=== PATIENT | male | born 1980 | race Caucasian/White ===

== ENCOUNTER 2019-08-19 20:09 | Observation (INO) ==
[2019-08-19 20:44] LABS: BE 2.4 mmoll (-3.0-3.0); BLOOD TYPE ARTERIAL; HCO3-(ACT) 26.7 mmoll (20.0-26.0); METHB 1.3 % (0.0-1.5); O2(CT) 20.8 mL/dL (15.0-23.0); O2HB 94.8 % (95.0-99.0); PCO2(98.6) 45 mmHg (35-45); PO2(98.6) 84 mmHg (60-100); SAMPLE BLOOD; SAO2 98.3 % (95.0-100.0); THB 15.6 g/dL (11.5-17.4)
[2019-08-19 20:46] LABS: ALLEN TEST YES; MODALITY ROOM AIR
[2019-08-19 20:46] LABS: BASO# 0.03 X1000 (0.0-0.2); BASO% 0.4 % (0.0-0.8); EOS# 0.12 X1000 (0.0-0.7); EOS% 1.6 % (0.0-10.0); HEMATOCRIT 46.4 % (42.0-52.0); HEMOGLOBIN 14.8 g/dL (14.0-18.0); IMM GRAN# 0.02 X1000 (0.0-0.04); IMM GRAN% 0.3 % (0.0-0.5); LYMPH# 2.34 X1000 (1.2-3.4); LYMPH% 32.1 % (20.5-51.1); MCH 28.6 PG (27-31); MCHC 31.9 g/dL (33-37); MCV 89.7 FL (81-99); MONO# 0.56 X1000 (0.11-0.59); MONO% 7.7 % (1.7-9.3); MPV 11.1 FL (7.4-10.4); NEUT# 4.23 X1000 (1.4-6.5); NEUT% 57.9 % (42.2-75.2); PLT 198 X1000 (130-400); RBC 5.17 XMIL (4.7-6.1); RDW 13.7 % (11.5-14.5)
[2019-08-19 20:51] LABS: INR 0.92; PROTIME 12.8 Seconds (11.0-16.0)
[2019-08-19 21:02] LABS: AGAP 14; BUN 10 mg/dL (8-22); CALCIUM 9.6 mg/dL (8.8-10.2); CHLORIDE 99 mmol/L (98-107); COSMO 283; ESTIMATED GFR > 60; GLUCOSE 105 mg/dL (70-104); POTASSIUM 4.3 mmol/L (3.5-5.1); SODIUM 142 mmol/L (136-145); TCO2 30 mmol/L (25-35)
--- NOTE | 2019-08-19 21:05 | Diag Imaging Result Doc PS360 ---
EXAM: CHEST-2 VIEWS INDICATION: short of breath TECHNIQUE: 2 views COMPARISON: None. FINDINGS: The lungs are grossly clear. There is no discrete pleural fluid collection or pneumothorax. The cardiomediastinal silhouette and central vasculature are grossly unremarkable. IMPRESSION: No evidence of acute pathology by plain radiograph. Electronically signed by Jesús Larry 08/19/2019 9:03 PM
[2019-08-19 21:13] LABS: UR AMPHETAMINES QUAL NONE DETECTED (NONE DETECT); UR BARBITUATES QUAL NONE DETECTED (NONE DETECT); UR BENZODIAZEPIN QUAL NONE DETECTED (NONE DETECT); UR CANNABINOIDS QUAL NONE DETECTED (NONE DETECT); UR COCAINE QUAL NONE DETECTED (NONE DETECT); UR METHADONE QUAL NONE DETECTED (NONE DETECT); UR METHAMPHETAMINE QUAL NONE DETECTED (NONE DETECT); UR OPIATES QUAL NONE DETECTED (NONE DETECT); UR OXYCODONE QUAL NONE DETECTED (NONE DETECT); UR PCP QUAL NONE DETECTED (NONE DETECT); UR PROPOXYPHENE QUAL NONE DETECTED (NONE DETECT); UR TCA QUAL NONE DETECTED (NONE DETECT)
[2019-08-19] MEDS ORDERED: NITROGLYCERIN SL ONE (22:24)
[2019-08-19] MEDS ORDERED: ASPIRIN PO ONE (22:24)
--- NOTE | 2019-08-19 22:25 | EKG Report ---
Test Performed on : 08/19/2019 8:16:27 PM Test Reason : SOB Blood Pressure : / mmHG Vent. Rate : 089 BPM Atrial Rate : 089 BPM P-R Int : 156 ms QRS Dur : 094 ms QT Int : 358 ms P-R-T Axes : 043 078 033 degrees QTc Int : 435 ms Normal sinus rhythm. Normal ECG No previous ECGs available Unconfirmed Result
--- NOTE | 2019-08-19 23:06 | PROVIDER DOCUMENTATION ---
This chart was entered by Tiarra Morrissey Scribe, acting as scribe for Martinez Zhu MD. HPI-Chest Pain - General Chief Complaint: Chest Pain Stated Complaint: SOB Time Seen by Provider: 08/19/19 20:17 Source: patient Allergies/Adverse Reactions: Patient Allergies Allergy/AdvReac Type Severity Reaction Status Date / Time amoxicillin [From Augmentin] AdvReac ANAPHYLAXIS Verified 08/19/19 20:24 clavulanic acid AdvReac ANAPHYLAXIS Verified 08/19/19 20:24 [From Augmentin] - History of Present Illness-CP Nature of Presenting Problem: Pt is a 39 yowm presenting in the ED with c/o mild SOB and chest pressure that pt states started last night. Pt reports that he went to [facility] today and they sent him over to ED because of his blood pressure being 135/95 and possible abnl finding in V2 of EKG. Pt denies cough/fever/n/v/d. Pt reports a allergy to Augmentin and no hx of HTN. Pt denies smoking and alcohol consumption. Pt is alert and nontoxic in appearance. Location: reports: central Chest Pain Radiation: reports: no radiation Quality of Pain: reports: pressure Severity in ED: mild Onset/Duration: abrupt, last night Timing: still present Context/Activities at Onset: reports: light activity Modifying Factors: improves with: nothing Associated Symptoms: reports: denies symptoms Nitro Today/Relief: no nitro taken today Aspirin Treatment Today: no aspirin today Prior Chest Pain/Cardiac Workup: reports: no prior chest pain, no prior cardiac workup, non-cardiac Similar Symptoms Previously?: No Recently Seen Here or By Another Healthcare Provider: Yes ([facility] this afternoon) Review of Systems - Adult - REVIEW OF SYSTEMS - ADULT Constitutional: denies: chills, fever Eyes: reports: no symptoms reported Ears, Nose, Mouth & Throat: reports: no symptoms reported Cardiovascular: reports: see HPI, chest pain (mild pressure). denies: syncope Respiratory: reports: see HPI, shortness of breath (mild). denies: cough Gastrointestinal: denies: diarrhea, nausea, vomiting Genitourinary: reports: no symptoms reported Musculoskeletal: reports: no symptoms reported Integumentary: reports: no symptoms reported Neurological: denies: dizziness/vertigo, headache/migraines Psychiatric: reports: no symptoms reported Endocrine: reports: no symptoms reported Hematologic/Lymphatic: reports: no symptoms reported Allergic/Immunologic: reports: no symptoms reported All Other Systems: Reviewed and Negative Past History - Adult - PAST MEDICAL HISTORY-ADULT Review of Records: reports: Nursing Assessment Review, Medications Reviewed, Social history reviewed & non-contributory. Major Childhood Illnesses: reports: denies history Cardiovascular: reports: denies history Respiratory: reports: denies history Gastrointestinal: reports: denies history Genitourinary: reports: denies history Musculoskeletal: reports: denies history Neurological: reports: denies history Endocrine/Immune: reports: denies history Other Conditions: reports: denies history - IMMUNIZATION STATUS Childhood Immunizations: See Nurse Assessment Flu Vaccine: See Nurse Assessment - FAMILY HISTORY Family History: reviewed, not pertinent - SOCIAL HISTORY Smoking: non-smoker Substance Use: denies Living Situation: family Physical Exam-General - PHYSICAL EXAM-ADULT Initial Vital Signs Reviewed: Yes - CONSTITUTIONAL General Appearance: appears well, alert, no apparent distress, obese (centrally) - EYES Eyes: PERRL/EOMI, pink conjunctivae - HEAD, EARS, NOSE, MOUTH & THROAT HENMT: normocephalic/atraumatic, moist mucous membranes, normal ENT inspection - NECK Neck: non-tender, full range of motion, supple, normal inspection - RESPIRATORY Respiratory: chest non-tender, lungs clear, normal breath sounds, no pleuratic chest pain, no respiratory distress, no accessory muscle use - CARDIOVASCULAR Cardiovascular: normal peripheral pulses, regular rate, rhythm - GASTROINTESTINAL (ABDOMEN) Abdominal Exam: non tender, soft - MUSCULOSKELETAL Back Exam: normal inspection, no CVA tenderness, no vertebral tenderness Extremity: normal range of motion, non-tender, normal gait, normal inspection, no pedal edema, no calf tenderness, normal capillary refill - SKIN Integumentary: normal color, normal turgor, warm/dry - NEUROLOGIC Neurologic: grossly normal - PSYCHIATRIC Psych/Mental Status: normal mood/affect, normal thought content, normal thought process, oriented x 3 - HEART Score HEART Score: History: Slightly Suspicious HEART Score: ECG: Normal HEART Score: Age: < or = 45 Years HEART Score: Risk Factors for Atherosclerotic Disease: No Risk Factors Known HEART Score: Troponin: < or = Normal Limit Total HEART Score:: 0 Progress - PLAN OF CARE/RESULTS Progress/Plan/Lab Results: Vital Signs - 8 hr 08/19/19 20:14 08/19/19 21:36 08/19/19 23:03 Temperature 98.4 F Pulse Rate 88 85 91 H Respiratory Rate 18 12 12 Blood Pressure 133/87 138/91 136/83 O2 Sat by Pulse Oximetry 100 99 97 Laboratory Results - last 24 hr 08/19/19 08/19/19 08/19/19 20:10 20:10 20:10 WBC RBC Hgb Hct MCV MCH MCHC RDW Std Deviation Plt Count MPV Immature Gran % (Auto) Neut % (Auto) Lymph % (Auto) Hand % (Auto) Eos % (Auto) Baso % (Auto) Immature Gran # (Auto) Neut # (Auto) Lymph # (Auto) Hand # (Auto) Eos # (Auto) Baso # (Auto) PT INR D-Dimer, Quantitative 0.39 Specimen Type Sample Site pH pCO2 pO2 HCO3 Base Excess Oxyhemoglobin ABG O2 Sat (Calculated) ABG O2 Saturation ABG Carboxyhemoglobin ABG Methemoglobin Thomas Test A-a O2 Difference Total Hemoglobin Lactate Blood Gas Modality FiO2 % Sodium 142 Potassium 4.3 Chloride 99 Carbon Dioxide 30 Anion Gap 14 BUN 10 Creatinine 1.0 Estimated GFR/1.73 m2 > 60 BUN/Creatinine Ratio 10 Glucose 105 H Calculated Osmolality 283 Calcium 9.6 Magnesium 2.1 Troponin T High Sens Free T4 Urine Opiates Screen Ur Oxycodone Screen Urine Methadone Screen U Propoxyphene Qual Ur Barbituates Screen Ur Tricyclics Screen Ur Phencyclidine Scrn Ur Amphetamines Screen U Methamphetamines Scrn U Benzodiazepines Scrn Urine Cocaine Screen U Cannabinoids Screen 08/19/19 08/19/19 08/19/19 20:10 20:10 20:10 WBC 7.30 RBC 5.17 Hgb 14.8 Hct 46.4 MCV 89.7 MCH 28.6 MCHC 31.9 L RDW Std Deviation 13.7 Plt Count 198 MPV 11.1 H Immature Gran % (Auto) 0.3 Neut % (Auto) 57.9 Lymph % (Auto) 32.1 Hand % (Auto) 7.7 Eos % (Auto) 1.6 Baso % (Auto) 0.4 Immature Gran # (Auto) 0.02 Neut # (Auto) 4.23 Lymph # (Auto) 2.34 Hand # (Auto) 0.56 Eos # (Auto) 0.12 Baso # (Auto) 0.03 PT INR D-Dimer, Quantitative Specimen Type Sample Site pH pCO2 pO2 HCO3 Base Excess Oxyhemoglobin ABG O2 Sat (Calculated) ABG O2 Saturation ABG Carboxyhemoglobin ABG Methemoglobin Thomas Test A-a O2 Difference Total Hemoglobin Lactate Blood Gas Modality FiO2 % Sodium Potassium Chloride Carbon Dioxide Anion Gap BUN Creatinine Estimated GFR/1.73 m2 BUN/Creatinine Ratio Glucose Calculated Osmolality Calcium Magnesium Troponin T High Sens < 6 Free T4 1.16 Urine Opiates Screen Ur Oxycodone Screen Urine Methadone Screen U Propoxyphene Qual Ur Barbituates Screen Ur Tricyclics Screen Ur Phencyclidine Scrn Ur Amphetamines Screen U Methamphetamines Scrn U Benzodiazepines Scrn Urine Cocaine Screen U Cannabinoids Screen 08/19/19 08/19/19 08/19/19 20:10 20:28 20:42 WBC RBC Hgb Hct MCV MCH MCHC RDW Std Deviation Plt Count MPV Immature Gran % (Auto) Neut % (Auto) Lymph % (Auto) Hand % (Auto) Eos % (Auto) Baso % (Auto) Immature Gran # (Auto) Neut # (Auto) Lymph # (Auto) Hand # (Auto) Eos # (Auto) Baso # (Auto) PT 12.8 INR 0.92 D-Dimer, Quantitative Specimen Type ARTERIAL Sample Site R RADIAL pH 7.40 pCO2 45 pO2 84 HCO3 26.7 H Base Excess 2.4 Oxyhemoglobin 94.8 L ABG O2 Sat (Calculated) 20.8 ABG O2 Saturation 98.3 ABG Carboxyhemoglobin 2.20 ABG Methemoglobin 1.3 Thomas Test YES A-a O2 Difference 9.0 Total Hemoglobin 15.6 Lactate 0.70 Blood Gas Modality ROOM AIR FiO2 % 21.0 Sodium Potassium Chloride Carbon Dioxide Anion Gap BUN Creatinine Estimated GFR/1.73 m2 BUN/Creatinine Ratio Glucose Calculated Osmolality Calcium Magnesium Troponin T High Sens Free T4 Urine Opiates Screen NONE DETECTED Ur Oxycodone Screen NONE DETECTED Urine Methadone Screen NONE DETECTED U Propoxyphene Qual NONE DETECTED Ur Barbituates Screen NONE DETECTED Ur Tricyclics Screen NONE DETECTED Ur Phencyclidine Scrn NONE DETECTED Ur Amphetamines Screen NONE DETECTED U Methamphetamines Scrn NONE DETECTED U Benzodiazepines Scrn NONE DETECTED Urine Cocaine Screen NONE DETECTED U Cannabinoids Screen NONE DETECTED Orders Category Date Time Status Cardiac Monitoring DIRECTED Care 08/19/19 20:26 Active Resuscitation Status Routine Care 08/19/19 23:00 Ordered Saline Loc NOW Care 08/19/19 20:26 Active CHEST-2 VIEWS [RAD] Stat Exams 08/19/19 20:27 Completed ABG [RESP] Routine Lab 08/19/19 20:28 Completed BASIC METABOLIC PANEL [CHEM] Stat Lab 08/19/19 20:10 Completed CBC WITH ELECTRONIC DIFF [HEME] Stat Lab 08/19/19 20:10 Completed D-DIMER [COAG] Stat Lab 08/19/19 20:10 Completed FREE T4 Stat Lab 08/19/19 20:10 Completed MAGNESIUM [CHEM] Stat Lab 08/19/19 20:10 Completed PROTIME WITH INR [COAG] Stat Lab 08/19/19 20:10 Completed TROPONIN T HIGH SENSITIVITY Stat Lab 08/19/19 20:10 Completed TROPONIN T HIGH SENSITIVITY Stat Lab 08/19/19 22:38 Received URINE DRUG SCREEN PL Stat Lab 08/19/19 20:42 Completed Aspirin Med 08/19/19 22:24 Discontinued 325 mg PO NOW ONE Nitroglycerin Sl [Nitroglycerin] Med 08/19/19 22:24 Discontinued 0.4 mg SL NOW ONE EKG [EKG] Stat Ther 08/19/19 20:26 Draft EKG [EKG] Stat Ther 08/19/19 22:26 Ordered Transfer/Admit Order [TRANSFER] Routine Transfer 08/19/19 22:59 Ordered Result Diagrams: 08/19/19 20:10 08/19/19 20:10 - REASSESSMENT Reassessment #1 Time Reassessed: 21:37 Status: improving (EKG,TROP,D-DIMER,CXR all WNL. STILL WITH CP AND SL SOB.) - EKG 1 Time of EKG reading by physician:: 20:18 EKG Read and Signed by:: Martinez Zhu EKG Interpretation (*Must complete 3 of following elements*): Normal Rate: 89 Rhythm: NSR [place]: normal QRS: normal MD Interval: normal ST Wave: normal - XRAY 1 XRAY Study: Chest Impression: See EMR Report ([facility] - [address], [address], [place] [address] [facility] - [address] [place] [address] Department of Imaging Patient: CADY VITALDM Date: 08/19/19#: [id number] : 1980ADM Status: PRE ERAcct#: [id number] Age/Sex: 39/MRoom/Bed: Loc: P.ED Ordering Physician: Martinez Zhu MD Family Physician: Clyde Chaudhary MD Reason for Procedure: short of breath Signed EXAM: CHEST-2 VIEWS INDICATION: short of breath TECHNIQUE: 2 views COMPARISON: None. FINDINGS: The lungs are grossly clear. There is no discrete pleural fluid collection or pneumothorax. The cardiomediastinal silhouette and central vasculature are grossly unremarkable. IMPRESSION: No evidence of acute pathology by plain radiograph. Electronically signed by Jesús Larry 08/19/2019 9:03 PM [id number] Interpreting Physician: Jesús Larry MD Dictated Date/Time: 08/19/192101 cc: Martinez Zhu MD; Clyde Chaudhary MD) - CONSULTS/PCP/HOSPITALIST Notification #1 *Consult/PCP/Hospitalist*: Dr. Pikcens Time Discussed: 22:45 Consult Disposition: Admit Departure - Departure Date of Disposition Decision: 08/19/19 Time of Disposition Decision: 22:52 DIAGNOSIS: Dyspnea on minimal exertion Chest pain Qualifiers: Chest pain type: unspecified Qualified Code(s): R07.9 - Chest pain, unspecified Disposition: ADMITTED INPATIENT 09 Certified Medical Emergency: Emergent Condition: Stable Additional Instructions: ED Follow Up Instructions: You have been treated by a care provider in the Emergency Department. These instructions are being provided to you so you can have an understanding of how to care for yourself upon discharge. Upon discharge from the Emergency Department, you are responsible for making arrangements for follow-up care by a physician of your choice. Take all prescribed medications as directed. Return to the Emergency Department immediately for any new or worsening symptoms. You may call the Physician Referral phone number at [phone] to obtain a list of Physicians who are taking new patients. Referrals and Follow-Ups: Clyde Chaudhary MD [Primary Care Provider] - Work Excuses: Return to School/Parent Work - Critical Care Note This patient required my direct & personal management of CC.: No Attestation - Physician/ COURT Attestation Patient care was provided by Advanced Practice Provider:: No The physician spent face to face time with patient:: Yes Advanced Practice Provider documentation review:: Supervising physician onsite and consulted in the evaluation and care of this patient. The physician did have a face to face encounter with the patient. This chart was documented by the indicated scribe, (Tiarra Morrissey, Yudy) and accurately reflects the services I performed and decisions made by me, Martinez Zhu MD, as attested by the provider's signature.
[2019-08-19] MEDS ORDERED: TYLENOL PO PRN (23:58)
[2019-08-19] MEDS ORDERED: MORPHINE IV PRN (23:58)
[2019-08-19] MEDS ORDERED: TORADOL IV PRN (23:58)
[2019-08-19] MEDS ORDERED: ZOFRAN ODT PO PRN (23:58)
[2019-08-20 08:34] VITALS: BP 129/89
--- NOTE | 2019-08-20 22:47 | HISTORY AND PHYSICAL ---
CHIEF COMPLAINT: Chest pain. HISTORY OF PRESENT ILLNESS: The patient is a 39-year-old male who presented to emergency department with complaints of chest pain, shortness of breath, chest pressure, discharged last night. States he had gone to [facility] and was told to come to the ER. Blood pressures upon arrival was 135/95. He had a possible abnormal EKG, although it seems to have resolved. ALLERGIES: Augmentin. SOCIAL HISTORY: Patient denies smoking or alcohol. FAMILY HISTORY: Noncontributory. PAST MEDICAL HISTORY: Has no current active medical problems. REVIEW OF SYSTEMS: As noted above. Denies any dysuria, frequency, urgency, hesitancy, polyuria or polydipsia. Denies skin rashes, weight loss or weight gain. PHYSICAL EXAMINATION: VITAL SIGNS: Reviewed. Temperature 98 degrees, pulse 88, respiratory rate 18, BP 133/87, saturation 100% on room air. GENERAL: Patient is awake, pleasant, in no distress. HEENT: Normocephalic. NECK: Supple. CARDIOVASCULAR: Regular rate. CHEST: Clear. ABDOMEN: Soft. EXTREMITIES: Moves all extremities. NEUROLOGIC: No changes. ASSESSMENT: Chest pain. First set of cardiac enzymes are negative. EKG is normal. Chest x-ray is clear. D-dimer is normal. PLAN: We are going to admit him to the hospital, complete the rule out. Further orders as needed. cc: Jacky Osorio MD
--- NOTE | 2019-08-21 05:07 | DISCHARGE SUMMARY ---
ADMISSION DATE: 08/19/2019 DISCHARGE DATE: 08/20/2019 DISCHARGE DIAGNOSES: 1. Chest pressure, resolved. 2. Labile hypertension, resolved. CONSULTATIONS: None. PROCEDURES: None. BRIEF HOSPITAL COURSE: Patient was admitted to the hospital, treated in the usual fashion, placed on rule out protocol. Thankfully, EKG, enzymes have all been negative. Symptoms have resolved. He is having some symptoms in his mid chest going straight through his back. Certainly, most likely this is related to gastritis. We are going to discharge him home with PPI and Carafate. He will follow up outpatient with his primary care. cc: Jacky Osorio MD
== END 2019-08-20 10:25 | disposition home or self-care (01) ==
LOC: P.ED 20:09 → INTOOBSV 20:10 → P.MEDSURG 20:10
PROVIDERS: ADMIT Family Medicine